=== PATIENT | male | born 1950 | race Caucasian/White ===

== ENCOUNTER 2022-10-02 10:12 | Observation (INO) | payer MEDICARE, BC, SELFPAY ==
[2022-10-02] VITALS (28 sets, daily range): BP systolic 128–171; BP diastolic 66–111; PULSE 52–71; RESP 18; TEMP 36.2–36.4; O2SAT 92–99; BMI 40.4
--- NOTE | 2022-10-02 10:36 | CRLHL7_ITS ---
For Patients: As a result of the Century Cures Act, medical imaging exams and procedure reports are released immediately into your electronic medical record. You may view this report before your referring provider. If you have questions, please contact your health care provider. INDICATION: Weakness. TECHNIQUE: Two-view chest. FINDINGS: Normal size cardiac silhouette. Clear lung meadows with no evidence of acute pneumonic infiltrates or CHF. No pneumothorax or pleural effusion. IMPRESSION: Negative chest. Dictated by Dell Griffin MD @ 10/02/2022 11:39:10 AM (Electronically Signed)
--- NOTE | 2022-10-02 10:51 | CRLHL7_ITS ---
For Patients: As a result of the 21st Century Cures Act, medical imaging exams and procedure reports are released immediately into your electronic medical record. You may view this report before your referring provider. If you have questions, please contact your health care provider. Indication: Stroke. Technique: MRI Head: Performed without and with intravenous contrast. MRA Head: Performed without IV contrast. MRA Neck: Performed without and with intravenous contrast. Contrast: 20 cc Dotarem. Comparison: None relevant available at the time of interpretation. Findings: MRI Head: Slight thinning of the corpus callosum. The pituitary gland and clivus appear intact. Mild degenerative change visualized upper cervical spine. There is a mild region of restricted diffusion involving the anterior left temporal lobe. There appears to be subtle regions of cortical and subcortical restricted diffusion along the left parietal lobe. There is subtle T2 FLAIR hyperintense signal on the anterior left temporal lobe. The ventricles are proportionate to the cerebral sulci. The 4th ventricle appears midline. The basal cisterns appear patent. 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 Mild parenchymal volume loss. Moderate T2 FLAIR hyperintense foci within the subcortical and periventricular white matter, favored to represent chronic ischemic microvascular disease. There is no intracranial mass, abnormal mass-effect or midline shift identified. No abnormal enhancement. The orbits are preserved. Mild paranasal sinus mucosal disease. MRA Head: Occlusion at the M1 segment of the left MCA. Loss of flow void involving the left MCA distribution on conventional MRI sequences with increased signal on the T2 FLAIR weighted images. However, there does appear to be at least some flow within the more distal MCA branches on postcontrast MRA of the neck. Mild atherosclerotic disease throughout the remaining intra cerebral vasculature. 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 No aneurysm identified. MRA Neck: Mild (less than 50 % stenosis) atherosclerotic disease at the proximal internal carotid arteries by NASCET criteria. The cervical segments of both vertebral arteries are patent. The visualized portions of the aortic arch, great vessel origins and proximal subclavian arteries are unremarkable. Impression: MRI Head: 1. Mild region of hyperacute infarct involving the anterior left temporal lobe. Potential additional small regions of hyperacute infarcts along the cortical/subcortical interface of the left parietal lobe. 2. Moderate chronic ischemic microvascular disease. MRA Head: 1. 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 Possible reconstitution with sluggish flow through the distal MCA branches seen on the postcontrast MRA of the neck. 2. No aneurysm. MRA Neck: 1. Mild (less than 50 % stenosis) atherosclerotic disease at the proximal internal carotid arteries by NASCET criteria. 2. The vertebral arteries appear patent. The above findings were communicated over the telephone with Dr. Bonnie Mosley by Dr. Manriquez at 1304 hours on 10/02/2022. Dictated by Tejinder Manriquez MD @ 10/02/2022 1:18:59 PM (Electronically Signed)
[2022-10-02 11:12] LABS: Basophils Absolute Auto 0.03 K/uL (0.00-0.30); Basophils Percent Auto 0.4 % (0.0-3.0); Eosinophils Absolute Auto 0.16 K/uL (0.00-0.50); Eosinophils Percent Auto 1.9 % (0.0-7.0); Hematocrit 45.9 % (37.0-53.0); Hemoglobin* 15.1 gm/dL (13.5-17.5); Immature Granulocytes Abs Auto 0.01 K/uL (0.00-0.30); Immature Granulocytes Pct Auto 0.1 %; Lymphocytes Percent Auto 17.4 % (20-44); Mean Corpuscular HGB Conc 33 gm/dL (32-36); Mean Corpuscular Hemoglobin 30 pg (26-34); Mean Corpuscular Volume 91 fL (80-100); Monocytes Percent Auto 7.2 % (0.0-11.0); Platelet Count* 263 K/uL (140-440); RDW Coefficient of Variation % 12.7 % (11.5-15.5); Red Blood Count 5.07 m/uL (4.30-5.90); White Blood Count* 8.39 K/uL (4.50-11.00)
[2022-10-02 11:15] LABS: Appearance Urine Clear (Clear); Bilirubin Urine Negative (Negative); Blood Urine Negative (Negative); Color Urine Yellow (Yellow); Glucose Urine Negative (Negative); Ketones Urine Negative (Negative); Leukocyte Esterase Urine Negative (Negative); Nitrite Urine Negative (Negative); Protein Urine Trace (Negative); Specific Gravity Urine 1.015 (1.000-1.030); Urobilinogen Urine 0.2 (0.2-1.0); pH Urine 8.5 (5.0-8.5)
[2022-10-02 11:21] LABS: Slide Review Reflex No
[2022-10-02 11:26] LABS: Albumin* 4.4 g/dL (3.3-5.0); Chloride* 103 mmol/L (96-114); Sodium* 141 mmol/L (135-149)
[2022-10-02 11:27] LABS: Potassium* 3.9 mmol/L (3.6-5.1)
[2022-10-02 11:27] LABS: RBC Urine 0-2 (0-2); WBC Urine 0-2 (0-5)
[2022-10-02 11:29] LABS: Carbon Dioxide* 30 mmol/L (20-32); Creatinine* 0.9 mg/dL (0.5-1.5); Est. Creatinine Clearance* 72.16; Estimated Glomerular Filt Rate 91 ml/min
[2022-10-02 11:30] LABS: Alanine Aminotransferase* 28 U/L (4-50); Alkaline Phosphatase* 89 U/L (40-150); Aspartate Amino Transferase* 27 U/L (12-35); Bilirubin Direct* 0.1 mg/dL (0.0-0.5); Bilirubin Total* 0.7 mg/dL (0.1-1.5); Blood Urea Nitrogen* 19 mg/dL (7-30); Calcium* 9.2 mg/dL (8.4-10.6); Glucose* 105 mg/dL (60-115); Total Protein* 7.7 g/dL (6.0-8.3)
[2022-10-02 11:32] LABS: C Reactive Protein* 0.8 mg/dL (0.5-1.0)
[2022-10-02 11:33] LABS: Troponin, Point-of-Care* 0.01 ng/ml (0.01-0.04)
[2022-10-02 11:34] LABS: Mono Screen* Negative (Negative)
--- NOTE | 2022-10-02 11:43 | ED.GENADULT ---
HPI - General Adult General Chief complaint: Weakness Stated complaint: sycope/weakness Time Seen by Provider: 10/02/22 10:28 Source: patient Mode of arrival: ambulatory Limitations: no limitations History of Present Illness HPI narrative: [age] year old male coming in today complaining of not feeling well. He states that around 3 hours prior to presenting, he had an episode where he felt very dizzy. He describes this as feeling like he was unsteady on his feet. Then his right leg felt very numb. He was unsure if he could continue walking so he sat down. The episode resolved in approximately 10 minute. He has not been feeling right since, complains of feeling very tired and is concerned that his blood pressure is elevated, therefore he presented to the ED for evaluation. Patient's past medical history is of again for obesity and hyperlipidemia. He takes daily statin and no other medications. He has no known drug allergies. He denies history of hypertension or obstructive sleep apnea. States his blood pressures at home are generally in the 120 systolic. When he woke up this morning was 170 and this did scare him. Denies any headache, no blurry vision or ringing in his ears. He is not having any chest pain or shortness of breath. No recent illness. Appetite has been normal. Past surgical history significant for partial colectomy secondary to large colonic polyps, shoulder surgery. Related Data Home Medications Medication Instructions Recorded Confirmed rosuvastatin 10 mg tablet (Crestor) 10 mg PO DAILY 10/02/22 10/02/22 Allergies Allergy/AdvReac Type Severity Reaction Status Date / Time No Known Drug Allergies Allergy Verified 10/02/22 10:19 Review of Systems Status of ROS: Reports: 10 or more systems reviewed and unremarkable except as noted in History and below [facility] Social History Smoking Status: Never smoker How often do you have a drink containing alcohol: monthly or less AUDIT-C Alcohol total score: 1 Non-prescribed substance use: denies use service: No Exam Narrative: Exam Narrative: Well-nourished well-developed patient in no acute distress. Alert and oriented. Answers questions appropriately. Mood and affect are appropriate. Thoughts are goal oriented and rational. No tangential or magical thinking noted. Patient speaks in full sentences without needing to catch his breath. Speech is not slurred or pressured. HEENT: Normocephalic atraumatic. Face is symmetrical. Pupils are equally round reactive to light. Extraocular muscles are intact. Conjunctivae are moist without any icterus noted. Moist mucous membranes. Posterior pharynx is normal. Neck is soft without any lymphadenopathy or thyromegaly. No masses are appreciated. Cardiovascular: Heart is regular rate and rhythm S1 and S2 are present without any murmurs. Lungs: Clear to auscultation bilaterally no wheezes rhonchi or rales are appreciated. Patient takes deep breaths without any discomfort. Abdomen: Soft and nontender, protuberant, nondistended with normal bowel sounds. No guarding or rebound. No masses or organomegaly appreciated. Extremities: Bilateral lower extremities show trace edema. Normal DP and PT pulses. Skin: Well perfused without any obvious rashes. Strength is 5/5 of the upper and lower extremities. Reflexes are 2+ and symmetric at the knees. Cranial nerves 3-12 are normal. [id number] is normal. There is no nystagmus either horizontally or vertically. Gait is normal. Const: Vital Signs, click to edit/add: Vital Signs - 24 hr 10/02/22 10:16 10/02/22 10:24 10/02/22 10:30 Pulse Rate 58 L 60 Pulse Rate [Right Pulse Oximeter] 64 Respiratory Rate 18 Blood Pressure Blood Pressure [Le ft Upper Arm] 165/91 H Pulse Oximetry 96 97 [facility] 10/02/22 10:33 10/02/22 11:03 10/02/22 11:04 Pulse Rate 57 L 55 L 61 Pulse Rate [Right Pulse Oximeter] Respiratory Rate Blood Pressure 171/111 H 132/84 Blood Pressure [Le ft Upper Arm] Pulse Oximetry 95 97 95 Oxygen Delivery Mi thod 10/02/22 11:15 10/02/22 12:30 10/02/22 12:31 Pulse Rate 52 L 67 60 Pulse Rate [Right Pulse Oximeter] Respiratory Rate Blood Pressure 145/77 H Blood Pressure [Le ft Upper Arm] Pulse Oximetry 93 92 97 [facility] 10/02/22 12:32 10/02/22 12:33 10/02/22 12:45 Pulse Rate 68 61 71 Pulse Rate [Right Pulse Oximeter] Respiratory Rate Blood Pressure 146/78 H Blood Pressure [Le ft Upper Arm] Pulse Oximetry 95 97 97 Oxygen Delivery Me thod 10/02/22 13:00 10/02/22 13:01 10/02/22 13:15 Pulse Rate 69 64 62 Pulse Rate [Right Pulse Oximeter] Respiratory Rate Blood Pressure 140/83 H Blood Pressure [Le ft Upper Arm] Pulse Oximetry 97 96 96 Oxygen Delivery Me thod 10/02/22 13:30 10/02/22 13:31 10/02/22 13:45 Pulse Rate 65 67 69 Pulse Rate [Right Pulse Oximeter] Respiratory Rate Blood Pressure 128/84 Blood Pressure [Le ft Upper Arm] Pulse Oximetry 97 96 97 Oxygen Delivery Me thod 10/02/22 14:00 10/02/22 14:02 10/02/22 14:15 Pulse Rate 63 67 55 L Pulse Rate [Right Pulse Oximeter] Respiratory Rate Blood Pressure 147/85 H Blood Pressure [Le ft Upper Arm] Pulse Oximetry 98 99 97 Oxygen Delivery Me thod 10/02/22 14:30 10/02/22 14:31 10/02/22 14:45 Pulse Rate 57 L 58 L 63 Pulse Rate [Right Pulse Oximeter] Respiratory Rate Blood Pressure 139/73 Blood Pressure [Le ft Upper Arm] Pulse Oximetry 98 98 98 Oxygen Delivery Me thod Course Course Hospital Course: Given patient's vague symptoms of 1 sided body numbness and feeling off balance, I was concerned about a possible TIA and I did consult with Dr. Concepcion, stroke neurologist at [facility] who recommended MRI brain and MRA of head and neck. EKG, read by me, shows sinus bradycardia with a pulse of 59, sinus arrhythmia. Patient's pulse remained in the mid 60s while he was here. Lab work unremarkable. MRI and MRA showing occlusion of the distal segment of the MCA and a Mild region hyperacute infarct. Spoke again with Dr. Concepcion who recommended admission, aspirin and Plavix- both given while in the ED. She will follow the patient via stroke telemedicine. Patient remained asymptomatic throughout his emergency room stay. Vital Signs Vital signs: Initial Vital Signs Pulse Rate 64 10/02/22 10:16 Pulse Rhythm Regular 10/02/22 10:16 Respiratory Rate 18 10/02/22 10:16 Blood Pressure 165/91 H 10/02/22 10:16 Blood Pressure Mean 115 H 10/02/22 10:16 Blood Pressure Position Sitting 10/02/22 10:16 Pulse Oximetry 96 10/02/22 10:16 Oxygen Delivery Method Room Air 10/02/22 10:16 Vital Signs Pulse Rate 64 10/02/22 10:16 Respiratory Rate 18 10/02/22 10:16 Blood Pressure 165/91 H 10/02/22 10:16 Pulse Oximetry 96 10/02/22 10:16 Oxygen Delivery Method Room Air 10/02/22 10:16 Pulse Rate 63 10/02/22 14:45 Respiratory Rate 18 10/02/22 10:16 Blood Pressure 139/73 10/02/22 14:31 Pulse Oximetry 98 10/02/22 14:45 Oxygen Delivery Method Room Air 10/02/22 10:16 Medical Decision Making MDM Narrative Medical decision making narrative: 72-year-old male status post TIA with abnormalities noted on imaging. Patient will be admitted for further management. Medical Records Medical records reviewed: Yes I reviewed the patient's medical records Lab Data Labs: Lab Results 10/02/22 10/02/22 Range/Units 10:37 10:38 WBC 8.39 (4.50-11.00) K/uL RBC 5.07 (4.30-5.90) m/uL Hgb 15.1 (13.5-17.5) gm/dL Hct 45.9 (37.0-53.0) % MCV 91 (80-100) fL MCH 30 (26-34) pg MCHC 33 (32-36) gm/dL RDW Coeff of Ant 12.7 (11.5-15.5) % Plt Count 263 (140-440) K/uL Neut % (Auto) 73.0 H (42.0-72.0) % Lymph % (Auto) 17.4 L (20-44) % Monona % (Auto) 7.2 (0.0-11.0) % Eos % (Auto) 1.9 (0.0-7.0) % Baso % (Auto) 0.4 (0.0-3.0) % Neut # (Auto) 6.10 (1.7-7.0) K/uL Lymph # (Auto) 1.50 (0.90-2.90) K/uL Monona # (Auto) 0.60 (0.00-0.90) K/UL Eos # (Auto) 0.16 (0.00-0.50) K/uL Baso # (Auto) 0.03 (0.00-0.30) K/uL Abs Immat Gran (auto) 0.01 (0.00-0.30) K/uL Imm/Tot Granulo (auto) 0.1 % Sodium 141 (135-149) mmol/L Potassium 3.9 (3.6-5.1) mmol/L Chloride 103 (96-114) mmol/L Carbon Dioxide 30 (20-32) mmol/L BUN 19 (7-30) mg/dL Creatinine 0.9 (0.5-1.5) mg/dL Estimated Creat Clear 72.16 Estimated GFR 91 ml/min Glucose 105 (60-115) mg/dL Calcium 9.2 (8.4-10.6) mg/dL Total Bilirubin 0.7 (0.1-1.5) mg/dL Direct Bilirubin 0.1 (0.0-0.5) mg/dL AST 27 (12-35) U/L ALT 28 (4-50) U/L Alkaline Phosphatase 89 (40-150) U/L Troponin I < 0.01 L (0.01-0.04) ng/mL C-Reactive Protein 0.8 (0.5-1.0) mg/dL Total Protein 7.7 (6.0-8.3) g/dL Albumin 4.4 (3.3-5.0) g/dL TSH 3.100 (0.270-4.20) uIU/mL Urine Color Yellow (Yellow) Urine Appearance Clear (Clear) Urine pH 8.5 (5.0-8.5) Ur Specific [place] 1.015 (1.000-1.030) Urine Protein Trace A (Negative) Urine Glucose (UA) Negative (Negative) Urine Ketones Negative (Negative) Urine Blood Negative (Negative) Urine Nitrite Negative (Negative) Urine Bilirubin Negative (Negative) Urine Urobilinogen 0.2 (0.2-1.0) Ur Leukocyte Esterase Negative (Negative) Urine RBC 0-2 (0-2) Urine WBC 0-2 (0-5) Ur Squamous Epith Cells None (None-Few) Urine Bacteria None (None) Monoscreen Negative (Negative) POC Troponin I 0.01 (0.01-0.04) ng/ml Imaging Data Chest x-ray: Attestation: I have reviewed the pertinent imaging results. Radiologist's impression: Two-view chest. FINDINGS: Normal size cardiac silhouette. Clear lung meadows with no evidence of acute pneumonic infiltrates or CHF. No pneumothorax or pleural effusion. IMPRESSION: Negative chest. MRI - head: Attestation: I have reviewed the pertinent imaging results. Radiologist's impression: Technique: MRI Head: Performed without and with intravenous contrast. MRA Head: Performed without IV contrast. MRA Neck: Performed without and with intravenous contrast. Contrast: 20 cc Dotarem. Comparison: None relevant available at the time of interpretation. Findings: MRI Head: Slight thinning of the corpus callosum. The pituitary gland and clivus appear intact. Mild degenerative change visualized upper cervical spine. There is a mild region of restricted diffusion involving the anterior left temporal lobe. There appears to be subtle regions of cortical and subcortical restricted diffusion along the left parietal lobe. There is subtle T2 FLAIR hyperintense signal on the anterior left temporal lobe. The ventricles are proportionate to the cerebral sulci. The 4th ventricle appears midline. The basal cisterns appear patent. 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 Mild parenchymal volume loss. Moderate T2 FLAIR hyperintense foci within the subcortical and periventricular white matter, favored to represent chronic ischemic microvascular disease. There is no intracranial mass, abnormal mass-effect or midline shift identified. No abnormal enhancement. The orbits are preserved. Mild paranasal sinus mucosal disease. MRA Head: Occlusion at the M1 segment of the left MCA. Loss of flow void involving the left MCA distribution on conventional MRI sequences with increased signal on the T2 FLAIR weighted images. However, there does appear to be at least some flow within the more distal MCA branches on postcontrast MRA of the neck. Mild atherosclerotic disease throughout the remaining intra cerebral vasculature. 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 No aneurysm identified. MRA Neck: Mild (less than 50 % stenosis) atherosclerotic disease at the proximal internal carotid arteries by NASCET criteria. The cervical segments of both vertebral arteries are patent. The visualized portions of the aortic arch, great vessel origins and proximal subclavian arteries are unremarkable. Impression: MRI Head: 1. Mild region of hyperacute infarct involving the anterior left temporal lobe. Potential additional small regions of hyperacute infarcts along the cortical/subcortical interface of the left parietal lobe. 2. Moderate chronic ischemic microvascular disease. MRA Head: 1. 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 Possible reconstitution with sluggish flow through the distal MCA branches seen on the postcontrast MRA of the neck. 2. No aneurysm. MRA Neck: 1. Mild (less than 50 % stenosis) atherosclerotic disease at the proximal internal carotid arteries by NASCET criteria. 2. The vertebral arteries appear patent. MRA head neck: Attestation: I have reviewed the pertinent imaging results. Radiologist's impression: Technique: MRI Head: Performed without and with intravenous contrast. MRA Head: Performed without IV contrast. MRA Neck: Performed without and with intravenous contrast. Contrast: 20 cc Dotarem. Comparison: None relevant available at the time of interpretation. Findings: MRI Head: Slight thinning of the corpus callosum. The pituitary gland and clivus appear intact. Mild degenerative change visualized upper cervical spine. There is a mild region of restricted diffusion involving the anterior left temporal lobe. There appears to be subtle regions of cortical and subcortical restricted diffusion along the left parietal lobe. There is subtle T2 FLAIR hyperintense signal on the anterior left temporal lobe. The ventricles are proportionate to the cerebral sulci. The 4th ventricle appears midline. The basal cisterns appear patent. 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 Mild parenchymal volume loss. Moderate T2 FLAIR hyperintense foci within the subcortical and periventricular white matter, favored to represent chronic ischemic microvascular disease. There is no intracranial mass, abnormal mass-effect or midline shift identified. No abnormal enhancement. The orbits are preserved. Mild paranasal sinus mucosal disease. MRA Head: Occlusion at the M1 segment of the left MCA. Loss of flow void involving the left MCA distribution on conventional MRI sequences with increased signal on the T2 FLAIR weighted images. However, there does appear to be at least some flow within the more distal MCA branches on postcontrast MRA of the neck. Mild atherosclerotic disease throughout the remaining intra cerebral vasculature. 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 No aneurysm identified. MRA Neck: Mild (less than 50 % stenosis) atherosclerotic disease at the proximal internal carotid arteries by NASCET criteria. The cervical segments of both vertebral arteries are patent. The visualized portions of the aortic arch, great vessel origins and proximal subclavian arteries are unremarkable. Impression: MRI Head: 1. Mild region of hyperacute infarct involving the anterior left temporal lobe. Potential additional small regions of hyperacute infarcts along the cortical/subcortical interface of the left parietal lobe. 2. Moderate chronic ischemic microvascular disease. MRA Head: 1. 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 Possible reconstitution with sluggish flow through the distal MCA branches seen on the postcontrast MRA of the neck. 2. No aneurysm. MRA Neck: 1. Mild (less than 50 % stenosis) atherosclerotic disease at the proximal internal carotid arteries by NASCET criteria. 2. The vertebral arteries appear patent. ECG Data Attestation: I personally reviewed and interpreted this ECG as follows: Discharge Plan Discharge Clinical Impression: Brain TIA Patient Disposition: Admitted As Inpatient Condition: Stable
[2022-10-02 11:44] LABS: Troponin I* < 0.01 ng/mL (0.01-0.04)
[2022-10-02] MEDS: ASPIRIN EC 325 MG TABLET PO (14:14)
[2022-10-02] MEDS: CLOPIDOGREL 300 MG TABLET PO (14:14)
--- NOTE | 2022-10-02 14:20 | ED.NURSE ---
neurology had called back and has already spoken to dr hughes. plan is to be done per the neurologist and dr hughes. the tele med exam, per the neurologist, is unknown as to when this will be done. the cart with the neuro tele med camera at the bedside.
--- NOTE | 2022-10-02 15:30 | ED.NURSE ---
rosenda miller was given report. to [id number] via cart.
--- NOTE | 2022-10-02 15:53 | P.IMHP_ITS ---
Hospitalist- H&P: HPI History of Present Illness Time Seen by Provider: 15:00 Date Seen: 10/02/22 Chief complaint: Transient R leg numbness and lightheadedness Narrative: Jurgen Tucker is a 72 year old man was in his usual state of health until this morning. He woke up around his usual time, 6 in the morning, at which time he went downstairs and watch some television shows. Both he and his were preparing to cone picker their grandson when he noticed these symptoms, around 8:00 a.m. or so. Symptoms lasted all of 5 minutes. He did not feel steady on his feet. [place] a sense of dizziness. Denied headache. These symptoms entirely resolved in that time frame, and have not recurred since. Subsequently felt extremely sleepy, and thus the patient remained home resting while his picked up their grandson. Interestingly, he checked his blood pressure after the symptoms resolved and his systolic blood pressure reading was 170 mmHg, which is unusually elevated for him. Usually his systolic blood pressures at rest are around 120 mmHg. Denied any other symptoms. Denied any other focal motor neurologic deficits including in regard to cranial nerves. His called the [facility] help line, explained the situation, and received advice to present to the emergency department for further assessment. Thus they came to the emergency department for further evaluation. Has never experienced any thing like this in the past. No recent trauma or injury. No recent major travel. No recent illness. Denies chest heaviness, pressure, tightness, or pain. Denies syncope. Denies cough or dyspnea at rest, paroxysmal nocturnal dyspnea, orthopnea. Denies nausea vomiting. Denies palpitations or chest fluttering. Has history of chronic bilateral lower extremity edema, right greater than left, which in the recent past has been well controlled. Historically he has had to use compression stockings to address this. Review of Systems Status of ROS: Reports: 10 or more systems reviewed and unremarkable except as noted in History and below [facility] Medical History (Updated 10/02/22 @ 16:17 by Chente Neil MD) Elevated BP without diagnosis of hypertension ?R03.0 - Elevated blood-pressure reading, without diagnosis of hypertension (ICD-10) Family history of prostate cancer in father ?Z80.42 - Family history of malignant neoplasm of prostate (ICD-10) Family history of colon cancer in mother ?Z80.0 - Family history of malignant neoplasm of digestive organs (ICD-10) Adenomatous polyp of colon ?D12.6 - Benign neoplasm of colon, unspecified (ICD-10) Obesity ?E66.9 - Obesity, unspecified (ICD-10) Hyperlipidemia ?E78.5 - Hyperlipidemia, unspecified (ICD-10) Surgical History (Updated 10/02/22 @ 15:36 by Chente Neil MD) Status post right rotator cuff repair ?Z98.890 - Other specified postprocedural states (ICD-10) S/P colectomy ?Z90.49 - Acquired absence of other specified parts of digestive tract (ICD- 10) Hx of colonoscopy with polypectomy ?Z98.890 - Other specified postprocedural states (ICD-10) ?Z86.010 - Personal history of colonic polyps (ICD-10) Family History (Updated 10/02/22 @ 15:47 by Chente Neil MD) Mother Colon cancer, Onset Age: 62 Father Prostate cancer Social History (Updated 10/02/22 @ 15:53 by Chente Neil MD) Narrative: As of 10/02/2022, 45 years. 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 Lives with , Maryann Tucker. Designates as POA for health should that be needed - Maryann's telephone number is [phone]. Requests full resuscitation in event of cardiopulmonary demise. Primary care physician is Dr. Jed García, [facility], [place], [place]. Smoking Status: Never smoker How often do you have a drink containing alcohol: monthly or less AUDIT-C Alcohol total score: 1 Non-prescribed substance use: denies use service: No Meds Home Medications and Allergies Home Medications Medication Instructions Recorded Confirmed Type rosuvastatin 10 mg tablet (Crestor) 10 mg PO DAILY 10/02/22 10/02/22 History Allergies Allergy/AdvReac Type Severity Reaction Status Date / Time No Known Drug Allergies Allergy Verified 10/02/22 10:19 Exam Narrative: Exam Narrative: I examined the patient in the emergency department, as he is in a semi recumbent position on the exam table. He appears comfortable and in no acute distress. Vision and hearing are grossly normal. Alert, oriented to self, place, time, situation. Articulate, friendly, cooperative. Mood and affect are congruent. Normal tympanic membranes bilaterally. Midline nasal septum. Mallampati class ii airway. Dentition fair repair. Moist buccal mucosa. No icterus or conjunctival injection. Pupils equally round and reactive to light and accommodation. Extraocular muscles intact. No nystagmus. Neck is supple. Midline trachea. No JVD or hepatojugular reflux. No carotid bruits. No head and neck lymphadenopathy. Lungs are clear to auscultation without wheezing, rhonchi, or rales. Chest wall excursions are full. No CVA tenderness. No tenderness to percussion over the spine. Heart tones with regular rhythm, normal S1-S2, without murmur, gallop, or rub. PMI is not laterally displaced. Abdomen is obese, with active bowel sounds, soft, nontender. No organomegaly or masses. No rebound or guarding. No obvious focal motor neurologic deficits. Moves all 4 extremities. No tremor or asterixis. Cranial nerves 3-12 are grossly normal. Normal strength testing upper and lower extremities. Normal rapid alternating movements of upper and lower extremities. Normal finger to nose bilaterally. Palpable pulses upper and lower extremities. Capillary refill less than 3 seconds. Mild bilateral lower extremity edema, right greater than left. Secondary findings of chronic venous insufficiency of right lower extremity. Const: Vital Signs, click to edit/add: Vital Signs - 24 hr 10/02/22 10:16 10/02/22 10:24 10/02/22 10:30 Pulse Rate 58 L 60 Pulse Rate [Right Pulse Oximeter] 64 Respiratory Rate 18 Blood Pressure Blood Pressure [Le ft Upper Arm] 165/91 H Pulse Oximetry 96 97 94 [facility] 10/02/22 10:33 10/02/22 11:03 10/02/22 11:04 Pulse Rate 57 L 55 L 61 Pulse Rate [Right Pulse Oximeter] Respiratory Rate Blood Pressure 171/111 H 132/84 Blood Pressure [Le ft Upper Arm] Pulse Oximetry 95 97 95 Oxygen Delivery [facility] 10/02/22 11:15 10/02/22 12:30 10/02/22 12:31 Pulse Rate 52 L 67 60 Pulse Rate [Right Pulse Oximeter] Respiratory Rate Blood Pressure 145/77 H Blood Pressure [Le ft Upper Arm] Pulse Oximetry 93 92 97 [facility] 10/02/22 12:32 10/02/22 12:33 10/02/22 12:45 Pulse Rate 68 61 71 Pulse Rate [Right Pulse Oximeter] Respiratory Rate Blood Pressure 146/78 H Blood Pressure [Le ft Upper Arm] Pulse Oximetry 95 97 97 Oxygen Delivery [facility] 10/02/22 13:00 10/02/22 13:01 10/02/22 13:15 Pulse Rate 69 64 62 Pulse Rate [Right Pulse Oximeter] Respiratory Rate Blood Pressure 140/83 H Blood Pressure [Le ft Upper Arm] Pulse Oximetry 97 96 96 Oxygen Delivery [facility] 10/02/22 13:30 10/02/22 13:31 10/02/22 13:45 Pulse Rate 65 67 69 Pulse Rate [Right Pulse Oximeter] Respiratory Rate Blood Pressure 128/84 Blood Pressure [Le ft Upper Arm] Pulse Oximetry 97 96 97 Oxygen Delivery [facility] 10/02/22 14:00 10/02/22 14:02 10/02/22 14:15 Pulse Rate 63 67 55 L Pulse Rate [Right Pulse Oximeter] Respiratory Rate Blood Pressure 147/85 H Blood Pressure [Le ft Upper Arm] Pulse Oximetry 98 99 97 Oxygen Delivery [facility] 10/02/22 14:30 10/02/22 14:31 10/02/22 14:45 Pulse Rate 57 L 58 L 63 Pulse Rate [Right Pulse Oximeter] Respiratory Rate Blood Pressure 139/73 Blood Pressure [Le ft Upper Arm] Pulse Oximetry 98 98 98 Oxygen Delivery [facility] 10/02/22 15:02 10/02/22 15:32 Pulse Rate Pulse Rate [Right Pulse Oximeter] Respiratory Rate Blood Pressure 145/76 H 130/66 Blood Pressure [Le ft Upper Arm] Pulse Oximetry Oxygen Delivery [facility] Hospitalist - H&P: Result Labs Labs: Short CBC 10/02/22 Range/Units 10:37 WBC 8.39 (4.50-11.00) K/uL Hgb 15.1 (13.5-17.5) gm/dL Hct 45.9 (37.0-53.0) % Plt Count 263 (140-440) K/uL BMP 10/02/22 10:37 Sodium 141 Potassium 3.9 Chloride 103 Carbon Dioxide 30 BUN 19 Creatinine 0.9 Glucose 105 Calcium 9.2 Cardiac Enzymes 10/02/22 Range/Units 10:37 Troponin I < 0.01 L (0.01-0.04) ng/mL Liver Function 10/02/22 Range/Units 10:37 Total Bilirubin 0.7 (0.1-1.5) mg/dL Direct Bilirubin 0.1 (0.0-0.5) mg/dL AST 27 (12-35) U/L ALT 28 (4-50) U/L Alkaline Phosphatase 89 (40-150) U/L Albumin 4.4 (3.3-5.0) g/dL Urine 10/02/22 Range/Units 10:38 Urine Color Yellow (Yellow) Urine Appearance Clear (Clear) Urine pH 8.5 (5.0-8.5) Ur Specific Jackson 1.015 (1.000-1.030) Urine Protein Trace A (Negative) Urine Glucose (UA) Negative (Negative) ECG ECG interpretation date: 10/02/22 ECG interpretation time: 15:00 Prior ECG tracings: not available for review Interpretation: Normal sinus rhythm. No sign of ischemia. Imaging MR - Other: Attestation: I have reviewed the pertinent imaging results. Radiologist's impression: 10/02/2022, MRI head, MRA head and neck: Impression: MRI Head: 1. Mild region of hyperacute infarct involving the anterior left temporal lobe. Potential additional small regions of hyperacute infarcts along the cortical/subcortical interface of the left parietal lobe. 2. Moderate chronic ischemic microvascular disease. MRA Head: 1. 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 Possible reconstitution with sluggish flow through the distal MCA branches seen on the postcontrast MRA of the neck. 2. No aneurysm. MRA Neck: 1. Mild (less than 50 % stenosis) atherosclerotic disease at the proximal internal carotid arteries by NASCET criteria. 2. The vertebral arteries appear patent. Chest x-ray: Attestation: I have reviewed the pertinent imaging results. Radiologist's impression: 10/02/2022: No acute cardiopulmonary abnormalities noted. Assessment and Plan Assessment and plan (1) Acute ischemic left middle cerebral artery (MCA) stroke: Problem comment: 10/02/2022: transient 5 minutes of R leg numbness; MRI Head: 1. Mild region of hyperacute infarct involving the anterior left temporal lobe. Potential additional small regions of hyperacute infarcts along the cortical/subcortical interface of the left parietal lobe. 2. Moderate chronic ischemic microvascular disease. MRA Head: 1. 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 Possible reconstitution with sluggish flow through the distal MCA branches seen on the postcontrast MRA of the neck. 2. No aneurysm. MRA Neck: 1. Mild (less than 50 % stenosis) atherosclerotic disease at the proximal internal carotid arteries by NASCET criteria. 2. The vertebral arteries appear patent. Status: Acute Assessment and Plan: 1. Patient was seen by video stroke Neurology, Dr. Concepcion, [facility] [place]. 2. In the emergency department patient received clopidogrel 300 mg orally x1 dose. Starting tomorrow morning we will continue the patient on clopidogrel 75 mg orally once daily. 3. In the emergency department patient received aspirin 325 mg orally x1 dose. Starting tomorrow morning we will continue the patient on aspirin 81 mg orally once daily. 4. Will double the dose of his rosuvastatin from 10 mg once daily to 20 mg once daily. Patient started this medication about 6 months ago. 5. Will monitor blood pressures for now. At this juncture I will not start him on an antihypertensive medication. Will need to consider this matter additionally in the outpatient setting. 6. Check echocardiogram, in particular I think it is prudent to rule out PFO in this individual. 7. Physical therapy and occupational therapy to assess patient while in hospital. 8. Telemetry while in hospital. Recheck ECG in the morning. 9. Will have lab run a hemoglobin A1c. 10. Will recheck fasting lipid panel tomorrow morning. 11. Stroke Neurology will continue to follow the patient while he is in the hospital. 12. Neuro checks q.4 hours while in hospital. (2) Atherosclerotic cerebrovascular disease: Problem comment: 10/02/2022: MRA Head: Occlusion at the M1 segment of the left MCA. Loss of flow void involving the left MCA distribution on conventional MRI sequences with increased signal on the T2 FLAIR weighted images. However, there does appear to be at least some flow within the more distal MCA branches on postcontrast MRA of the neck. Mild atherosclerotic disease throughout the remaining intra cerebral vasculature. Left [employer]AT [employer]ER. No aneurysm identified. MRA Neck: Mild (less than 50 % stenosis) atherosclerotic disease at the proximal internal carotid arteries by NASCET criteria. The cervical segments of both vertebral arteries are patent. The visualized portions of the aortic arch, great vessel origins and proximal subclavian arteries are unremarkable. Status: Acute Assessment and Plan: 1. Increased rosuvastatin dose as specified above. 2. Initiate low-cholesterol low-fat diet. Will ask our dietitian to consult with the patient in this regard. (3) Elevated BP without diagnosis of hypertension: Problem comment: 02/23: noted to have resting SBPs of 140-150 mmHg at home periodically - followed by primary care physician. Status: Acute Assessment and Plan: 1. For now will not initiate antihypertensive therapy. Will have primary care physician reassess in the outpatient setting. (4) Hyperlipidemia: Status: Acute Assessment and Plan: 1. Increased rosuvastatin dose. 2. Recheck fasting lipid panel tomorrow morning. Plan 1. Reviewed impression with patient and . Answered their questions. 2. Patient and are agreeable to above stated plans and recommendations.
[2022-10-02 18:25] LABS: Hemoglobin A1C* 5.17 % (0-5.6)
--- NOTE | 2022-10-02 18:28 | PC.NURSE ---
Patient arrived to the floor at 15:45 with his and grandson. He reports feeling fine since his episode at 0730 this morning. VSS on RA. Pt ate 100% of dinner. Neuros were completed per MD order @ 1800. AMEE's in place order for SCD's at bedtime. He is independent in his room. Echo was completed at 1800. A1C is still pending. Observation overnight per tele neuro consult. Treating with plavix and asprin. Telemetry in place. Repeat ECG tomorrow AM.
[2022-10-03 00:05] VITALS: BP 133/77; PULSE 61; RESP 16; TEMP 36.6; O2SAT 95
[2022-10-03 04:00] VITALS: BP 158/84; PULSE 80; RESP 16; TEMP 36.6; O2SAT 97
--- NOTE | 2022-10-03 05:27 | PM.CCEN ---
Critical Care Event Note Summary Time Seen by Provider: 05:00 Date Seen: 10/03/22 Code activated: No Narrative: Received a rapid response request from nursing staff onsite reporting new neurologic symptoms consistent with left-sided weakness and facial droop with expressive aphasia. Chart reviewed and patient was noted to be admitted earlier today with CVA with MRI of the head consistent with occlusion of the M1 segment of the left MCA. At the time of my evaluation on camera, patient was already being evaluated by tele stroke neurology. According to patient RN, strength and neuro assessment at the beginning of the shift with intact muscle strength in upper and lower extremity. Case discussed with Dr. Huang Tele-stroke neurologist who assessed the patient and recommended a transfer patient to a tertiary center [facility] for thrombectomy. Recommended IV fluid administration and asked junior staff accountant to arrange for ambulance transfer and communicated with neurology and neurointensive care unit at the destination site. Critical care time: less than 30 mins
--- NOTE | 2022-10-03 06:02 | PC.NURSE ---
END OF SHIFT NOTE: PT PLEASANT AND COOPERATIVE WITH CARES. PT DENIES CP, SOB, N/V. AMBULATES INDEPENDENTLY WITHIN ROOM. VSS ON RA; AFEBRILE. NEURO CHECKS NEGATIVE. JONATHAN AT PT BEDSIDE. CALL LIGHT WITHIN PT?S REACH.? [id number] PT STATUS CHANGE. PT WAS UP TO USE RESTROOM; UPON RETURN TO BED PT REPORTS SUDDEN RIGHT SIDE WEAKNESS. RIGHT ARM AND LEG FLACCID, RIGHT SIDED FACIAL DROOP, SLURRED SPEECH. STROKE CODE CALLED @0420. TELESTROKE CONTACTED SPOKE WITH DR. MONTOYA. LESLEY UPDATED DR. KO SUTTON. PT TRANSFERRED VIA EMS TO [facility]; ACCEPTING DR. DEE. NURSE TO NURSE REPORT COMPLETED.
== END 2022-10-03 07:00 | disposition short-term general hospital (02) ==
LOC: ED 14:15 → MEDSURG 15:46
PROVIDERS: Admitting Provider Internal Medicine; Emergency Provider Family Medicine; Visit Provider Internal Medicine
DX: I63.512 Cerebral infarction due to unspecified occlusion or stenosis of left middle cerebral artery (principal); I67.2 Cerebral atherosclerosis; R03.0 Elevated blood-pressure reading, without diagnosis of hypertension; E78.5 Hyperlipidemia, unspecified
CPT/HCPCS: 36415; 70544; 70549; 70553; 71046; 80048; 80061; 80076; 81001; 83036; 84443; 84484; 85025; 86140; 86308; 87086; 87186; 93005; 93306; 94761; 99285; G0378; G0427; A9270; A9575

== ENCOUNTER 2022-10-03 05:17 | Outpatient (CLI) | payer MEDICARE, BC, SELFPAY | END 2022-10-03 05:18 | disposition home or self-care (01) | LOC: AMB 10-06 19:43 | PROVIDERS: Visit Provider Family Medicine | DX: I63.512 Cerebral infarction due to unspecified occlusion or stenosis of left middle cerebral artery (principal) | CPT/HCPCS: A0425; A0427; A0429 ==

== ENCOUNTER 2022-10-16 07:22 | Emergency (ER) | payer MEDICARE, BC, SELFPAY ==
[2022-10-16 07:25] VITALS: BP 119/68; PULSE 51; RESP 16; O2SAT 96
[2022-10-16 07:31] VITALS: BP 135/60; PULSE 51; RESP 16; TEMP 35.6; O2SAT 96; BMI 33.7
[2022-10-16 08:00] VITALS: BP 115/55; PULSE 43; RESP 16; O2SAT 96
--- NOTE | 2022-10-16 08:29 | ED_ITS ---
HPI - General Adult General Chief complaint: Allergic Reaction Stated complaint: new medication side effects Time Seen by Provider: 10/16/22 07:58 History of Present Illness HPI narrative: This 72-year-old male comes in reporting an episode of lightheadedness, feeling warm, and some nausea that occurred couple hours prior to arrival at about 530 or 6 this morning. He had a a blood clot removed from his brain at [facility] a couple weeks ago. He has been doing well since then. He is taking Plavix and aspirin and his primary physician started him on lisinopril a couple days ago. He wonders if this may be causing some of these symptoms. He states that he took his last dose of lisinopril yesterday morning now more than 24 hours ago. His measured his blood pressure last night and found a systolic value of 107. His blood pressure at the time of my visit is 115 for systolic value and he did not take his lisinopril or any other blood pressure medicine this morning. Currently he feels back to normal. He did not have any other symptoms. There is no report of chest pain, shortness of breath, cough, dysuria, diarrhea, or vomiting. Related Data Home Medications Medication Instructions Recorded Confirmed rosuvastatin 10 mg tablet (Crestor) 10 mg PO DAILY 10/02/22 10/16/22 aspirin 81 mg chewable tablet 1 tab PO DAILY 10/16/22 10/16/22 clopidogrel 75 mg tablet 75 mg PO DAILY 10/16/22 10/16/22 lisinopril 5 mg tablet 5 mg PO DAILY 10/16/22 10/16/22 Allergies Allergy/AdvReac Type Severity Reaction Status Date / Time No Known Drug Allergies Allergy Verified 10/16/22 07:36 Review of Systems Status of ROS: Reports: 10 or more systems reviewed and unremarkable except as noted in History and below Narrative: Constitutional: No fevers, no weight gain or loss. Eyes: No discharge. No vision changes. HENT: No congestion, no sore throat, no ear pain. Cardiovascular: No chest pain, no palpitations. Respiratory: No shortness of breath, no wheezes, no cough. Gastrointestinal: No abdominal pain, no vomiting, no diarrhea. Genitourinary: No dysuria, no hematuria. Musculoskeletal: Normal range of motion. Skin: No rashes, no pruritis. Neurological: No weakness, sensory change, speech change. Endo/Heme/Allergies: No bruising or bleeding. No polydipsia. Pysch: no suicidality, no anxiety, no insomnia. All other systems reviewed and are negative. [facility] Medical History (Updated 10/16/22 @ 08:34 by Anish Coreas MD) Elevated BP without diagnosis of hypertension ?R03.0 - Elevated blood-pressure reading, without diagnosis of hypertension (ICD-10) Family history of prostate cancer in father ?Z80.42 - Family history of malignant neoplasm of prostate (ICD-10) Family history of colon cancer in mother ?Z80.0 - Family history of malignant neoplasm of digestive organs (ICD-10) Adenomatous polyp of colon ?D12.6 - Benign neoplasm of colon, unspecified (ICD-10) Obesity ?E66.9 - Obesity, unspecified (ICD-10) Hyperlipidemia ?E78.5 - Hyperlipidemia, unspecified (ICD-10) Surgical History Status post right rotator cuff repair ?Z98.890 - Other specified postprocedural states (ICD-10) S/P colectomy ?Z90.49 - Acquired absence of other specified parts of digestive tract (ICD- 10) Hx of colonoscopy with polypectomy ?Z98.890 - Other specified postprocedural states (ICD-10) ?Z86.010 - Personal history of colonic polyps (ICD-10) Family History Mother Colon cancer, Onset Age: 62 Father Prostate cancer Social History (Updated 10/02/22 @ 15:53 by Chente Neil MD) Narrative: As of 10/02/2022, 45 years. 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 Lives with , Maryann Tucker. Designates as POA for health should that be needed - Maryann's telephone number is [phone]. Requests full resuscitation in event of cardiopulmonary demise. Primary care physician is Dr. Jed García, [facility], [place], [place]. What is your current living situation?: I presently have a place to live Problems where you live: no known problems Problems where you live details: None In the past 12 months, utilities in danger of being shut off: no In the past 12 mos, have been you worried that your food would run out before you had money to buy more?: never true In the past 12 mos, the food you bought just didn't last and you didn't have money to buy more?: never true Highest level of school completed/degree received: Associate degree: occupational, technical, vocational program Smoking Status: Never smoker How often do you have a drink containing alcohol: monthly or less Alcohol type: beer How often do you have six or more drinks on one occasion: Never AUDIT-C Alcohol total score: 1 Non-prescribed substance use: denies use Caffeine: No How often does anyone, including family, friends and others, physically hurt you : never How often does anyone, including family, friends and others, insult or talk down to you: never How often does anyone, including family, friends and others, threaten you with harm: never How often does anyone, including family, friends and others, scream or curse at you: never service: No Exam Narrative: Exam Narrative: Constitutional: Well-developed, well-nourished, no acute distress. HEENT: Normocephalic, atraumatic. Neck: Normal range of motion. Nontender. Supple. Heart: Regular. No murmurs. Normal rate. Intact distal pulses. Lungs: Clear to auscultation. No chest discomfort. No wheezes, rhonchi, or rales. Abdomen: Normal bowel sounds. Nontender. No rebound tenderness. Genitalia: Deferred. Back: No midline tenderness. Normal range of motion. Extremities: Normal range of motion. No injury. Skin: Intact. No rash. Warm. No erythema or pallor. Neurologic: No altered sensation. No weakness. Alert and oriented. Psychiatric: No suicidality. No anxiety or depression. No insomnia. Nursing notes and vitals signs are reviewed. Const: Vital Signs, click to edit/add: Vital Signs - 24 hr 10/16/22 07:31 Temperature 96.1 F L Pulse Rate [Right Pulse Oximeter] 51 L Respiratory Rate 16 Blood Pressure [Ri ght Upper Arm] 135/60 Pulse Oximetry 96 Oxygen Delivery Me thod Room Air Course Vital Signs Vital signs: Initial Vital Signs Temperature 96.1 F L 10/16/22 07:31 Temperature Source Temporal Artery Scan 10/16/22 07:31 Pulse Rate 51 L 10/16/22 07:31 Respiratory Rate 16 10/16/22 07:31 Blood Pressure 135/60 10/16/22 07:31 Blood Pressure Mean 85 10/16/22 07:31 Blood Pressure Position Sitting 10/16/22 07:31 Pulse Oximetry 96 10/16/22 07:31 Oxygen Delivery Method Room Air 10/16/22 07:31 Vital Signs Temperature 96.1 F L 10/16/22 07:31 Pulse Rate 51 L 10/16/22 07:31 Respiratory Rate 16 10/16/22 07:31 Blood Pressure 135/60 10/16/22 07:31 Pulse Oximetry 96 10/16/22 07:31 Oxygen Delivery Method Room Air 10/16/22 07:31 Temperature 96.1 F L 10/16/22 07:31 Pulse Rate 51 L 10/16/22 07:31 Respiratory Rate 16 10/16/22 07:31 Blood Pressure 135/60 10/16/22 07:31 Pulse Oximetry 96 10/16/22 07:31 Oxygen Delivery Method Room Air 10/16/22 07:31 Medical Decision Making MDM Narrative Medical decision making narrative: This patient states that he feels normal currently but describes symptoms of lightheadedness with some warm feeling and nausea symptoms this morning. He was started on lisinopril a couple days ago and his blood pressure this morning has a systolic value of 115 without taking any blood pressure medicine for the past 24 hours. Last night his blood pressure was 107. It seems that his blood pressure was too low causing the symptoms he described this morning. The patient has not had anything to eat or drink yet this morning also. I had a rather lengthy discussion regarding the role of blood pressure management and criteria for treating blood pressure. I advised him to hold his lisinopril and record blood pressures for follow-up appointment with his primary physician. I did discuss lab and imaging options today and in a process of shared decision making and because he had a rather thorough workup recently the patient declined any further studies at this time. Discharge Plan Discharge Clinical Impression: Hypotension due to medication Patient Disposition: Home, Self-Care Condition: Stable Additional Instructions: Hold lisinopril. Record blood pressures for follow-up appointment with primary physician in the next week or 2. Return if worsening. Prescriptions: No Action clopidogrel 75 mg tablet 75 mg PO DAILY aspirin 81 mg tablet,chewable 1 tab PO DAILY lisinopril 5 mg tablet 5 mg PO DAILY rosuvastatin [Crestor] 10 mg tablet 10 mg PO DAILY Follow Up/Referrals: Provider,Not a Local [Primary Care Provider] - Stand Alone Forms: [facility] [employer] Info Instructions
[2022-10-16 08:30] VITALS: BP 134/74; PULSE 58; RESP 16; O2SAT 98
== END 2022-10-16 08:53 | disposition home or self-care (01) ==
PROVIDERS: Emergency Provider Emergency Medicine Emergency Medical Services
DX: I95.2 Hypotension due to drugs (principal); T46.4X5A Adverse effect of angiotensin-converting-enzyme inhibitors, initial encounter
CPT/HCPCS: 99283; 99284

== ENCOUNTER 2023-09-03 06:22 | Outpatient (CLI) | payer MEDICARE, BC, SELFPAY ==
--- OUTSIDE RECORDS SUMMARY | 2023-09-03 06:25 | XMS_ITS | Clinical Summary ---
Author Organization [facility] Address [place], [place] [address] Care Team Providers Care Youth Nutritional Monitor Name Role Phone Jed García DO Primary Care Provider Allergies No known active allergies Medications Medication Sig Dispensed Refills Start Date End Date Status multivitamin (MVI) tablet Take 1 Tablet by mouth once daily. 0 06/11/2019 Active Bgtww-1-JRT-EPA-Fish Oil 1,000 mg (120 mg-180 mg) cap Take 1 Capsule by mouth once daily. 0 06/11/2019 Active Saw Arroyo 160 mg capsule Take 1 Capsule by mouth once daily. 0 06/11/2019 Active cholecalciferol (Vitamin D) 1,000 unit capsule Take 1 Capsule (1,000 units) by mouth once daily. 0 02/28/2022 Active jghokilz-yojzsanao-N -manganese 500-400-2-0.33 mg cap Take 1 Capsule by mouth once daily. Active Coenzyme Q10 10 mg cap Take 10 mg by mouth once daily. Active apixaban (Eliquis) 5 mg tabletIndications:Pa roxysmal atrial fibrillation (HC) Take 1 Tablet (5 mg) by mouth two times daily. 180 Tablet 3 04/05/2023 Active rosuvastatin (CRESTOR) 10 mg tabletIndications:Hy perlipidemia, unspecified hyperlipidemia type Take 1 Tablet (10 mg) by mouth at bedtime. 90 Tablet 3 04/05/2023 Active polyethylene glycol-electrolyte (GOLYTELY) 236-22.74-6.74 -5.86 gram suspensionIndication s:Adenomatous polyp of colon, unspecified part of colon Drink 2 liters the day before colonoscopy and 2 liters 6 hours before colonoscopy appointment 4000 mL 08/27/2023 Active lisinopriL (PRINIVIL; ZESTRIL) 2.5 mg tabletIndications:HT N (hypertension) Take 1 Tablet (2.5 mg) by mouth once daily. 90 Tablet 3 08/20/2023 Active Active Problems Problem Noted Date Diagnosed Date Right hemiplegia 04/05/2023 Paroxysmal atrial fibrillation 02/01/2023 Last Assessment & Plan: [id number] of 4. Family history of colon cancer 10/12/2022 Ischemic stroke 10/04/2022 Acute CVA (cerebrovascular accident) 10/03/2022 HTN (hypertension) 10/03/2022 Morbid obesity with BMI of 40.0-44.9, adult 11/03 Adenomatous colon polyp 07/07/2015 Overview: Colonoscopy 07/2015 multiple polyps repeat in 3 years Colonoscopy 09/2018 2 polyps, repeat in 5 years Encounters Date Type Department Care Team Description 08/27/2023 Telephone [facility] [address] [place] [address] Jed García, DO Questions (NEEDS INSTRUCTION ON PRE-OP WORK. SHE CAN NOT SEE IN MY CHART.) 08/20/2023 10:35 AM CDT Preop Visit [facility] [address] [place] [address] Jed García, DO Pre-Op Exam ([facility] Dr Bernal 09/03/23 colonoscopy) 08/20/2023 Travel from Last 3 Months Immunizations Name Administration Dates Next Due Influenza, Inactivated AIIV4 (Age 65+ Years) Preserv Free 12/22/2022,02/15/2022,02/03/2021,11/20 Pneumococcal Poly,23-Valent (Pneumovax) 08/21/2018 Pneumococcal conj 13-Valent (Prevnar 13) 08/01/2017 RSV, Bivalent Vaccine Recons tituted (Abrysvo 120MCG/0.5mL) 12/30/2022 Tdap 06/23/2011 Zoster (Shingrix-RZV, recombinant) 02/27/2019, Family History Medical History Relation Name Comments Cancer-prostate Father Cancer-colon Mother Diabetes No Family History Heart Disease No Family History Relation Name Status Comments Father Mother Social History Tobacco Use Types Packs/Day Years Used Date Smoking Tobacco: Never Smokeless Tobacco: Never Tobacco Cessation:Counseling Given: Yes Alcohol Use Standard Drinks/Week Comments Yes 0 (1 standard drink = 0.6 oz pure alcohol) monthly - 1 beer - more in summer PHQ-2 Answer Date Recorded PHQ-2 TOTAL SCORE 0 04/05/2023 Social Connections Answer Date Recorded Frequency of Communication with Friends and Fami ly 0 10/12/2022 Financial Resource Strain Answer Date R ecorded Difficulty of Paying Living Expenses 3 10/12/2022 Difficulty of Paying Living Expenses Not on file 10/12/2022 Food Insecurity Answer Date Recorded Worried About Running Out of Food in the Last Ye ar 1 10/12/2022 Transportation Needs Answer Date Record ed Lack of Transportation (Medical) 1 10/12/2022 Housing Stability Answer Date Recorded Unable to Pay for Housing in the Last Year 1 10/12/2022 Sex and Gender Information Value Date Recorded Sex Assigned at Not on file Gender Identity Not on file Sexual Orientation Not on file Obstetrics History Last Filed Vital Signs Vital Sign Reading Time Taken Comments Blood Pressure 136/77 08/20/2023 10:39 AM CDT Pulse 58 08/20/2023 10:39 AM CDT Temperature 36.4 ??C (97.6 ??F) 11/28/2022 1:45 PM CD T Respiratory Rate 18 11/28/2022 1:45 PM CDT Oxygen Saturation 98% 08/20/2023 10: 39 AM CDT Inhaled Oxygen Concentration - - Weight 129.9 kg (286 lb 6.4 oz) 024 10:39 AM CDT Height 177.8 cm (5' 10) 08/20/2023 10: 39 AM CDT Body Mass Index 41.09 08/20/2023 10:39 AM CDT Plan of Treatment Upcoming Encounters Date Type Department Care Team (Late st Contact Info) Description 09/03/2023 6:30 AM CDT Procedure Only [facility] at [facility] [address] [place] [address] Conner Bernal MD [address] [place] [address] [place] [address] 09/05/2023 2:00 PM CDT Office Visit [facility] [place] [address] [facility] [address] [place] [address] Iggy Daigle MD [address] [place], [place] [id number] Health Maintenance Due Date Last Done Comments Tetanus booster 06/22/2021 06/23/2011 COVID-19 vaccine series ( season) 2023 12/18/2022, 12/29/2021, 06/15/2021, Additional history exists Colonoscopy through age 75 10/02/202310/01, 10/01/2018, 10/01/2018, Additional history exists Influenza for age 65+ 11/04/2023 12/22/2022 , 02/15/2022, 02/03/2021, Additional history exists Depression screening for age 12+ 04/05/2024 04/05/2023, 04/05/2023, 03/01/2022, Additional history exists Medicare Wellness for age 65+ 04/05/2024, 02/28/2022, 02/03/2021, Additional history exists BMI (ht and wt on same day) for age 18+ 08/19/2024 08/20/2023, 04/05/2023, 11/15/2022, Additional history exists Lipids for age 45-75 10/05/2027 10/04/2022, 02/28/2022, 02/03/2021, Additional history exists Tdap Completed 06/23/2011 Hepatitis C screening for ag e 18-79 Completed 08/01/2017 Pneumococcal series for age 65+ Completed 9, 08/01/2017 Zoster (shingles) series for age 50+ Completed 02/27/2019, 12/25/2018 Procedures Procedure Name Priority Date/Time Associated Diagnosis Comments LIPID PANEL Early AM 10/04/2022 4:29 AM CDT COLONOSCOPY SCREENING Routine 10/01/2018 8:42 AM CDT History of colon polyps ANTI HCV Routine 08/01/2017 5:15 PM CDT Need for hepatitis C screening test from Last 3 Months or Most Recently Relevant to Health Maintenance Results * (ABNORMAL) Lipid Panel (10/04/2022 4:29 AM CDT) CHOLESTEROL,TOTAL 92(L) 100 - 199 mg/dL 10/04/2022 5:33 AM CDT [facility] Comment: Cholesterol, Total Reference Ranges Desirable <200 mg/dL Borderline 200-239 mg/dL High >=240 mg/dL TRIGLYCERIDES 60 <150 mg/dL 10/04/2022 5:33 AM CDT [facility] HDL CHOLESTEROL 37(L) >40 mg/dL 5:33 AM CDT [facility] NON-HDL CHOLESTEROL 55 <145 mg/dl 10/04/2022 5:33 AM CDT [facility] CHOL/HDL RATIO 2.49 <4.50 10/04/2022 5:33 AM CDT [facility] LDL CHOLESTEROL 43 <=130 mg/dL 10/04/2022 5:33 AM CDT [facility] VLDL CHOLESTEROL 12 <=30 mg/dL 10/04/2022 5:33 AM CDT [facility] PROVIDER ORDERED STATUS RANDOM 10/04/2022 5:33 AM CDT [facility] Blood BLOOD SPECIMEN / Unknown Venipuncture / Unknown 10/04/2022 4:29 AM CDT 10/04/2022 4:54 AM CDT Neva Joiner MD CHE[facility] [address] [place] [address], * COLONOSCOPY SCREENING (10/01/2018 8:42 AM CDT) Jurgen Swenson MD GI PROCEDURE ORD * ANTI HCV [19381.2] (08/01/2017 5:15 PM CDT) HEPATITIS C ANTIBODY Non-React lin Non-React lin 08/02/2017 1:33 PM CDT [facility] Comment:Antibodies to HCV no t detected; does not exclude the possibility of exposure to HCV. Blood BLOOD SPECIMEN / Unknown Venipuncture / Unknown 08/01/2017 5:15 PM CDT 08/01/2017 5:16 PM CDT Jurgen Swenson MD SEND OUTS [facility] [address] [place] [address], from Last 3 Months or Most Recently Relevant to Health Maintenance Advance Directives * Full Code (Latest Code Status on File) Date Activated Date Inactivated Comments 10/03/2022 10:03 AM 10/05/2022 3:29 PM Question Answer Comments Code Status Discussion: Reviewed Preferences Care Teams Youth Nutritional Monitor Relationship Specialty Start Date End Date Jed García DO [address] [place] [address] PCP - General Family Practice 10/12/22
--- OUTSIDE RECORDS SUMMARY | 2023-09-03 06:25 | XMS_ITS | Continuity of Care Document ---
Author Organization [facility] Address [address] [address] [place] [address] Phone Care Team Providers Care Reuse Technician Name Role Phone Jurgen Romo MD Unavailable Unavailable Procedures Procedure Date Colonoscopy Flex; W/remov Les- 13 Colonoscopy Flex; Dx (nov Pro) 07 Advance Directives Directive Yes / No Effective Date File Name No Information Encounters Encounter Description Practice Location Reason(s) For Visit Diagnoses Date Provider Providers Copied on Encounter [facility], [address] [address], [place], [place], [id number], tel:[phone] [facility] No Information Demetrius Seaman. [address] [place] [address], [id number], [place]. tel:[phone] Referring Provider: Conner Reyes, [address] [place] [address], [address]. tel:[phone] [facility], [address] [address], [place], [id number], tel:[phone] [employer] No Information Demetrius Seaman. [address] [place] [address], [id number], [place]. tel:[phone] Referring Provider: Conner Reyes, [address] [place] [address], [address]. tel:[phone] [facility], [address] [address], [place], [id number], tel:[phone] [facility] [employer] No Information Demetrius Seaman. [address] [place] [address], [place], [id number], . tel:[phone] Referring Provider: Conner Reyes, [facility] [address], [place], [address]. tel:[phone] Family History Family Member Type Diagnosis Age At Onset No Information Payers Payer name Insurance type Covered libertarian ID Authoriza tigabriel(s) [facility] [id number] Social History Type Description Quantity Date Captured Comments Sex Male Smoking Status No Information Chief Complaint And Reason For Visit No Information Reason For Referral Reason For Referral No Information History Of Present Illness Encounter Date Complaint History Of Prese nt Illness No Information Functional Status Date Functional Assessmen t No Information Instructions Date Instruction Additional Infor mation No Information Assessments Type Assessment Date No Information Patient Care Teams Name Effective Dates (start - stop) Status Members No Information
--- NOTE | 2023-09-03 07:48 | W.ANESCHARGE ---
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
--- NOTE | 2023-09-03 09:46 | W.ANESCHARGE ---
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
== END 2023-09-03 06:23 | disposition home or self-care (01) ==
PROVIDERS: Visit Provider Internal Medicine Gastroenterology
DX: Z12.11 Encounter for screening for malignant neoplasm of colon (principal); K63.5 Polyp of colon; K57.30 Diverticulosis of large intestine without perforation or abscess without bleeding; Z86.010 Personal history of colon polyps; Z98.0 Intestinal bypass and anastomosis status
CPT/HCPCS: 00811; 45385; 88305; 99100; J2704

== ENCOUNTER 2024-11-07 11:19 | Emergency (ER) | payer MEDICARE, BC, SELFPAY ==
--- OUTSIDE RECORDS SUMMARY | 2024-11-07 11:22 | XMS_ITS | Clinical Summary ---
Author Organization [employer] [facility] [employer] [facility] Address [address] [place] [id number] Care Team Providers Care Eligibility Manager Name Role Phone Mono García DO Primary Care Provider [phone] Allergies No known active allergies Medications multivitamin (MVI) tablet Take 1 Tablet by mouth once daily. 0 0 Active Mynyu-1-IBX-EPA-Fis h Oil 1,000 mg (120 mg-180 mg) cap Take 1 Capsule by mouth once daily. 0 0 Active Saw Ashburn 160 mg capsule Take 1 Capsule by mouth once daily. 0 0 Active cholecalciferol (Vitamin D) 1,000 unit capsule Take 1 Capsule (1,000 units) by mouth once daily. 0 2 Active glucosam-chondroit- C-manganese 500-400-2-0.33 mg cap Take 1 Capsule by mouth once daily. Active Coenzyme Q10 10 mg cap Take 10 mg by mouth once daily. Active Eliquis 5 mg tabletIndications:P aroxysmal atrial fibrillation (HC) TAKE 1 TABLET(5 MG) BY MOUTH TWICE DAILY 180 Tablet 3 5 Active rosuvastatin 10 mg tabletIndications:H yperlipidemia, unspecified hyperlipidemia type Take 1 Tablet (10 mg) by mouth at bedtime. 90 Tablet 3 5 Active lisinopriL 2.5 mg tabletIndications:H TN (hypertension) Take 1 Tablet (2.5 mg) by mouth once daily. 90 Tablet 2 5 Active cephalexin 500 mg capsuleIndications: Cellulitis of lower extremity, unspecified laterality Take 1 Capsule (500 mg) by mouth four times daily for 7 days. 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 Family history of colon cancer 10/12/2022 Ischemic stroke 10/04/2022 Acute CVA (cerebrovascular accident) 10/03/2022 HTN (hypertension) 10/03/2022 Morbid obesity with BMI of 40.0-44.9, adult 11/03 Adenomatous colon polyp 07/07/2015 Overview (09/11/2023): Colonoscopy 07/2015 multiple polyps repeat in 3 years Colonoscopy 09/2018 2 polyps, repeat in 5 years Colonoscopy 09/2023 TA, SSA, repeat in 5 years Encounters Date Type Department Care Team Description 11/07/[address] [facility] [address] [place] [address] Mono García DO Cellulitis 11/04/2024 11:35 AM CDT Office Visit [facility] [address] [place] [address] Wanda Sousa PA Leg Pain/problem (b/l swelling and redness with blister like wounds that pop and are purulent. Swelling for 2 weeks; blisters 1 week ago. ) 11/04/2024 Travel 08/26/2024 10:00 AM CDT Ancillary Procedure [facility] [address] [place] [address] 08/26/2024 Travel 08/18/[address] [facility] [address] [place] [address] Mono García DO Refill Request (Lisinopril) from Last 3 Months Immunizations Immunization Administration Dates Next Due Influenza, Inactivated AIIV4 (Age 65+ Years) Preserv Free 12/22/2022,02/15/2022,02/03/2021,11/20 Pneumococcal Poly,23-Valent (Pneumovax) 08/21/2018 Pneumococcal conj 13-Valent (Prevnar 13) 08/01/2017 RSV, Bivalent Vaccine Recons tituted (Abrysvo 120MCG/0.5mL) 12/30/2022 Tdap 05/01/2023,06/23/2011 Zoster (Shingrix-RZV, recombinant) 02/27/2019, Family History Medical [...] Answer Date Recorded PHQ-2 TOTAL SCORE 0 07/23/2024 Social Connections Answer Date Recorded Do you often feel lonely or isolated from those around you? 0 07/24/2024 Financial Resource Strain Answer Date R ecorded Difficulty of Paying Living Expenses 3 10/23/2023 Difficulty of Paying Living Expenses Not on file 10/23/2023 Food Insecurity Answer Date Recorded Do you worry your food will run out before you are able to buy more? 1 07/24/2024 Transportation Needs Answer Date Record ed Does lack of transportation keep you from medica l appointments? 1 07/24/2024 Does lack of transportation keep you from work, meetings or getting things that you need? 1 07/24/2024 Housing Stability Answer Date Recorded What is your housing situation today? 1 07/24/2024 Utilities Answer Date Recorded Do you have trouble paying f or utilities (for example, heat, electricity, water, phone)? 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 Not on file Not on file Not on file Obstetrics History Last Filed Vital Signs Vital Sign Reading Time Taken Comments Blood Pressure 127/76 11/04/2024 11:42 AM CDT Pulse 60 11/04/2024 11:42 AM CDT Temperature 36.4 C (97.6 F) 11/28/2022 1:45 PM CDT Respiratory Rate 18 11/28/2022 1:45 PM CDT Oxygen Saturation 96% 11/04/2024 11: 42 AM CDT Inhaled Oxygen Concentration - - Weight 136.1 kg (300 lb 1.6 oz) 025 11:42 AM CDT Height 177.8 cm (5' 10) 07/24/2024 2:05 PM CDT Body Mass Index 43.06 07/24/2024 2:05 PM CDT Plan of Treatment Upcoming Encounters Date Type Department Care Team (Late st Contact Info) Description 12/08/2024 Cardiac Device Check [facility] [phone] Health Maintenance Due Date Last Done Comments COVID-19 vaccine series ( season) 2024 02/15/2024, 12/18/2022, 12/29/2021, Additional history exists Influenza Vaccine (#1) 2024 , 02/15/2022, 02/03/2021, Additional history exists Depression screening for age 12+ 07/23/2025 07/23/2024, 04/05/2023, 04/05/2023, Additional history exists BMI (ht and wt on same day) for age 18+ 07/24/2025 07/24/2024, 09/05/2023, 08/20/2023, Additional history exists Medicare Wellness for age 65+ 07/25/2025 07/24/2024, 04/05/2023, 02/28/2022, Additional history exists Colonoscopy through age 75 09/02/202809/02, 09/03/2023, 10/01/2018, Additional history exists Lipids for age 45-75 07/24/2029 07/24/2024, 10/23/2023, 10/04/2022, Additional history exists Tetanus booster 05/01/2033 05/01/2023, 06/23/2011 Hepatitis C screening for age 18-79 Completed 08/01/2017 Pneumococcal series for age 50+ Completed 08/21/2018, 08/01/2017 Zoster (shingles) series for age 50+ Completed 02/27/2019, 12/25/2018 RSV vaccine for adults or Completed 12/30/2022 Hepatitis B series for 19+ Aged Out N o longer eligible based on patient's age to complete this topic Procedures Procedure Name Priority Date/Time Associated Diagnosis Comments AEROBIC BACTERIAL CULTURE, STAIN Routine 11/04/2024 11:57 AM CDT Cellulitis of lower extremity, unspecified laterality ECHO TTE COMPLETE WO CONTRAST Routine 08/26/2024 10:48 AM CDT Aortic root dilatation LIPID PANEL W REFLEX MEASURED LDL Routine 07/24/2024 2:28 PM CDT Hyperlipidemia, unspecified hyperlipidemia type COLONOSCOPY SCREENING Routine 09/03/2023 12:00 AM CDT Adenomatous polyp of colon, unspecified part of colon ANTI HCV Routine 08/01/2017 5:15 PM CDT Need for hepatitis C screening test from Last 3 Months or Most Recently Relevant to Health Maintenance Results * ECHO TTE COMPLETE WO CONTRAST (08/26/2024 10:48 AM CDT) AORTIC VALVE MEAN PG 4 mmHg EJECTION FRACTION 66 % PEAK TR VELOCITY 3.1 m/s LVEDD 5.7 cm Anatomical Region Laterality Modality Ultrasound 08/26/2024 10:1 7 AM CDT Narrative 08/26/2024 11:12 AM CDT ECHOCARDIOGRAM VLADIMIR BARDALES : 1950 74 years Study Date: 08/26/2024 10:17:14 AM Gender: M BP: 159/67 mmHg Height: 178.00 cm BSA: 2.47 m Weight: 135.00 kg Tech: ADÁN Referring MD: MONO GARCÍA Site: [facility] Reading Location: Mobile-OP Patient Location: Outpatient. Procedure: 2D, Color Doppler and Spectral Doppler. Indication for study: Ao root dilatation Cardiac Rhythm: Sinus bradycardia.Study quality: Fair. Imaging limitations: This study was subject to imaging limitations due to body habitus and a prominent lung artifact. Final Impressions: 1. Mildly increased left ventricular size, borderline wall thickness, normal global systolic function, calculated EF of 66 %. 2. Right ventricular cavity size is normal, global systolic RV function is normal. 3. Mildly enlarged left atrium. 4. No significant valve disease detected. 5. Upper normal aortic sinus (4.0 cm) and ascending aorta (4.1 cm) size when accounting for patient height. Comparison Compared to prior exam of 10/02/2022: Difference in ascending aorta size is likely due to different location of measurement - today's study appears to visualize more of the ascending aorta. Chamber Sizes and Function Mildly increased left ventricular size, borderline wall thickness, normal global systolic function, calculated EF of 66 %. No resting regional wall motion abnormality visualized. Left atrial size is mildly enlarged. Right ventricular cavity size is normal, global systolic RV function is normal. The right atrium is normal. Right atrial volume index is 28 ml/m . Right atrial area is 22 cm . The pulmonary artery is not well visualized. The sinus of Valsalva is normal sized. The ascending aorta is normal sized. Valves, RV Pressures and Diastolic Function The aortic valve is normal in structure and trileaflet, no stenosis and no regurgitation. The mitral valve is normal in structure, trace mitral regurgitation. Indeterminate pattern of LV diastolic filling. The tricuspid valve is normal in structure, mild tricuspid regurgitation. The tricuspid regurgitant velocity is 3.1 m/s, the estimated right ventricular systolic pressure is 37 mmHg plus right atrial pressure. The pulmonic valve is not well visualized. Trace pulmonary regurgitation. Masses, Effusion, Shunts There is no pericardial effusion. The inferior vena cava is dilated, respiratory size variation greater than 50%. No left to right shunting was detected by limited color flow Doppler interrogation of the interatrial septum. MEASUREMENTS AND CALCULATIONS 2-D Measurements and LV Function: LVID (d) 5.7 cm Planimetered EF 66 % LVID (s) 3.7 cm LV FS% (2D) 35 % IVS (d) 1.3 cm LVOT diameter 2.6 cm LVPW (d) 1.1 cm HR 51 bpm Ao Sinus 4.0 cm LA Vol index 37 ml/m2 Ao Sinus ULN 4.2 cm * RA Vol index 28 ml/m2 Asc Ao 4.1 cm RA area 22 cm Asc Ao ULN 4.3 cm * RV Basal Diam 4.4 cm LA 4.6 cm RV Mid Diam 2.8 cm * Input BSA outside of range, reported values correspond to BSA = 2.1 Diastology: Mitral Tissue Doppler E Peak 0.7 m/s e', Septum 0.09 m/s A Peak 0.6 m/s e', Lateral 0.12 m/s E/A 1.2 E/e' Average 6.74 DT 243 msec Aortic Valve: Vmax 1.4 m/s LUCY (V) 4.32 cm VTI 0.33 m LUCY (I) 4.61 cm LVOT V max 1.1 m/s Max PG 8 mmHg LVOT VTI 0.28 m Mean PG 4 mmHg SV 153 ml Dim Index 0.84 SV index 62 ml/m CO 7.8 l/min CI 3.1 l/min/m Mitral Valve: MVA 3.1 cm MV P 1/2 70 msec Tricuspid Valve and estimated PA pressures: TR Vmax 3.1 m/s TAPSE 3.7 cm TR maxG 37 mmHg . This study was interpreted by an [facility] accredited facility. Final Procedure Note Mirza Bedoya MD - 08/26/2024 ECHOCARDIOGRAM VLADIMIR BARDALES : 1950 74 years Study Date: 08/26/2024 10:17:14 AM Gender: M BP: 159/67 mmHg Height: 178.00 cm BSA: 2.47 m Weight: 135.00 kg Tech: ADÁN Referring MD: MONO GARCÍA Site: [facility] Reading Location: Mobile-OP Patient Location: Outpatient. Procedure: 2D, Color Doppler and Spectral Doppler. Indication for study: Ao root dilatation Cardiac Rhythm: Sinus bradycardia.Study quality: Fair. Imaging limitations: This study was subject to imaging limitations due tobody habitus and a prominent lung artifact. Final Impressions: 1. Mildly increased left ventricular size, borderline wall thickness,normal global systolic function, calculated EF of 66 %. 2. Right ventricular cavity size is normal, global systolic RV functionis normal. 3. Mildly enlarged left atrium. 4. No significant valve disease detected. 5. Upper normal aortic sinus (4.0 cm) and ascending aorta (4.1 cm) sizewhen accounting for patient height. Comparison Compared to prior exam of 10/02/2022: Difference in ascending aorta size is likely due to different location ofmeasurement - today's study appears to visualize more of the ascendingaorta. Chamber Sizes and Function Mildly increased left ventricular size, borderline wall thickness, normalglobal systolic function, calculated EF of 66 %. No resting regional wallmotion abnormality visualized. Left atrial size is mildly enlarged. Rightventricular cavity size is normal, global systolic RV function is normal.The right atrium is normal. Right atrial volume index is 28 ml/m . Rightatrial area is 22 cm . The pulmonary artery is not well visualized. Thesinus of Valsalva is normal sized. The ascending aorta is normal sized. Valves, RV Pressures and Diastolic Function The aortic valve is normal in structure and trileaflet, no stenosis and noregurgitation. The mitral valve is normal in structure, trace mitralregurgitation. Indeterminate pattern of LV diastolic filling. Thetricuspid valve is normal in structure, mild tricuspid regurgitation. Thetricuspid regurgitant velocity is 3.1 m/s, the estimated right ventricularsystolic pressure is 37 mmHg plus right atrial pressure. The pulmonicvalve is not well visualized. Trace pulmonary regurgitation. Masses, Effusion, Shunts There is no pericardial effusion. The inferior vena cava is dilated,respiratory size variation greater than 50%. No left to right shunting wasdetected by limited color flow Doppler interrogation of the interatrialseptum. MEASUREMENTS AND CALCULATIONS 2-D Measurements and LV Function: LVID (d) 5.7 cm Planimetered EF 66% LVID (s) 3.7 cm LV FS% (2D) 35% IVS (d) 1.3 cm LVOT diameter2.6 cm LVPW (d) 1.1 cm HR 51bpm Ao Sinus 4.0 cm LA Vol index 37ml/m2 Ao Sinus ULN 4.2 cm * RA Vol index 28ml/m2 Asc Ao 4.1 cm RA area 22cm Asc Ao ULN 4.3 cm * RV Basal Diam4.4 cm LA 4.6 cm RV Mid Diam2.8 cm * Input BSA outside of range, reported values correspond to BSA = 2.1 Diastology: Mitral Tissue Doppler E Peak 0.7 m/s e', Septum 0.09 m/s A Peak 0.6 m/s e', Lateral 0.12 m/s E/A 1.2 E/e' Average 6.74 DT 243 msec Aortic Valve: Vmax 1.4 m/s LUCY (V) 4.32 cm VTI 0.33 m LUCY (I) 4.61 cm LVOT V max 1.1 m/s Max PG 8 mmHg LVOT VTI 0.28 m Mean PG 4 mmHg SV 153 ml Dim Index 0.84 SV index 62 ml/m CO 7.8 l/min CI 3.1 l/min/m Mitral Valve: MVA 3.1 cm MV P 1/2 70 msec Tricuspid Valve and estimated PA pressures: TR Vmax 3.1 m/s TAPSE 3.7 cm TR maxG 37 mmHg . This study was interpreted by an [facility] accredited facility. Final us Adei Jeovanymacrina DO ECHO ORD Final Result * (ABNORMAL) LIPID PANEL W REFLEX MEASURED LDL (07/24/2024 2:28 PM CDT) [facility] CHOLESTEROL, TOTAL 106 <200 mg/dL [facility] HDL CHOLESTEROL 38(L) > OR = 40 mg/dL [facility] TRIGLYCERIDES 73 <150 mg/dL [facility] LDL-CHOLESTEROL 53 mg/dL (calc) [facility] Comment: Reference range: <100 Desirable range <100 mg/dL for primary prevention; <70 mg/dL for patients with CHD or diabetic patients with > or = 2 CHD risk factors. LDL-C is now calculated using the Conner-Flaco calculation, which is a validated novel method providing better accuracy than the Friedewald equation in the estimation of LDL-C. Conner THORPE et al. JUNE. 2013;310(19): 5272-2128 (http://education.[employer]/faq/YZG385) CHOL/HDLC RATIO 2.8 <5.0 (calc) [facility] NON HDL CHOLESTEROL 68 <130 mg/dL (calc) [facility] Comment: For patients with diabetes plus 1 major ASCVD risk factor, treating to a non-HDL-C goal of <100 mg/dL (LDL-C of <70 mg/dL) is considered a therapeutic option. Blood BLOOD SPECIMEN / Unknown 07/24/2024 2:28 PM CDT 07/24/2024 2:30 PM CDT Narrative [facility] - 07/25/2024 3:36 AM CDT FASTING:YES FASTING: YES Adei DriftToItqra DO CHEMISTRY Final Result Performing Organization Address [facility] Co de Phone Number [id number] [facility] [address] [place] [address], [facility] [address] [place] [address] * COLONOSCOPY SCREENING (09/03/2023 12:00 AM CDT) Konbinijess DO GI PROCEDURE ORD Final Result * ANTI HCV [11012.2] (08/01/2017 5:15 PM CDT) HEPATITIS C ANTIBODY Non-React lin Non-React lin 08/02/2017 1:33 PM CDT [facility] Comment:Antibodies to HCV no t detected; does not exclude the possibility of exposure to HCV. Blood BLOOD SPECIMEN / Unknown Venipuncture / Unknown 08/01/2017 5:15 PM CDT 08/01/2017 5:16 PM CDT Vladimir Swenson MD SEND OUTS Final Resu lt [facility] [address] [place] [address], [place] from Last 3 Months or Most Recently Relevant to Health Maintenance Insurance MEDICARE PART B HB ONLY MEDICARE PB ONLY MEDICARE PART A HB ONLY MEDICARE PART B HB ONLY [facility] FED EMP Advance Directives * Full Code (Latest Code Status on File) Date Activated Date Inactivated Comments 10/03/2022 10:03 AM 10/05/2022 3:29 PM Question Answer Comments Code Status Discussion: Reviewed Preferences Care Teams Eligibility Manager Relationship Specialty Start Date End Date Mono García DO [address] [facility] [address] PCP - General Family Practice 10/12/22
[2024-11-07 11:54] VITALS: BP 133/81; PULSE 96; RESP 18; TEMP 36.6; O2SAT 99; BMI 41.6
--- NOTE | 2024-11-07 12:03 | ED_ITS ---
HPI - General Adult General Chief complaint: Skin/Abscess/Foreign Body Stated complaint: Leg Swells on both legs for past 2 weeks Time Seen by Provider: 11/07/24 11:30 History of Present Illness HPI narrative: Patient reports about two weeks of open sores in bilateral lower extremities. Figueroa s been taking prescribed antibiotics but reports worsening of leg infection. Did initially have cultures taken at [facility] , reports that on calling today these were pending. Patient denies fever or increase in pain. 74-year-old man presenting to the emergency department with concern of increased swelling in his right lower leg in particular. Does have a longstanding history of with sounds like lymphedema. Denies any heart problems like CHF, but does take twice a day 5 mg of apixaban for history of CVA. No chest pain or shortness of breath. Seen in clinic and initiated on cephalexin 3 days ago. Was told to follow-up if was not doing much better in a couple of days. Believes that the swelling has increased particularly, again right more so than left, in the last 2 days. No fever. Is not having much in the way of pain. Has been recommended for compression but does not use it. Does try to get the legs up at rest as demonstrated though is not quite at or above the level of the heart. Source have been open for a couple of weeks. Cultures apparently are pending. Related Data Home Medications ?Medication ?Instructions ?Recorded ?Confirmed rosuvastatin 10 mg tablet (Crestor) 10 mg PO DAILY 11/07/24 aspirin 81 mg chewable tablet 1 tab PO DAILY 10/16/22 10/16/22 clopidogrel 75 mg tablet 75 mg PO DAILY 10/16/2210/03 lisinopril 5 mg tablet 5 mg PO DAILY 10/16/2210/16 apixaban 5 mg tablet (Eliquis) 5 mg PO BID 11/07/24 cephalexin 500 mg capsule 500 mg PO QID 11/07/2411/07 lisinopril 2.5 mg tablet 2.5 mg PO DAILY 11/07/2407/27 Allergies Allergy/AdvReac Type Severity Reaction Status Date / Time No Known Drug Allergies Allergy Verified 11/07/24 11:53 Review of Systems Status of ROS: Reports: 6 or more systems reviewed and unremarkable except as noted in History and below [facility] Medical History Elevated BP without diagnosis of hypertension ?R03.0 - Elevated blood-pressure reading, without diagnosis of hypertension (ICD-10) Family history of prostate cancer in father ?Z80.42 - Family history of malignant neoplasm of prostate (ICD-10) Family history of colon cancer in mother ?Z80.0 - Family history of malignant neoplasm of digestive organs (ICD-10) Adenomatous polyp of colon ?D12.6 - Benign neoplasm of colon, unspecified (ICD-10) Obesity ?E66.9 - Obesity, unspecified (ICD-10) Hyperlipidemia ?E78.5 - Hyperlipidemia, unspecified (ICD-10) Surgical History Status post right rotator cuff repair ?Z98.890 - Other specified postprocedural states (ICD-10) S/P colectomy ?Z90.49 - Acquired absence of other specified parts of digestive tract (ICD- 10) Hx of colonoscopy with polypectomy ?Z98.890 - Other specified postprocedural states (ICD-10) ?Z86.010 - Personal history of colonic polyps (ICD-10) Family History Mother Colon cancer, Onset Age: 62 Father Prostate cancer Social History Narrative: As of 10/02/2022, 45 years. 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 Lives with , Maryann Tucker. Designates as POA for health should that be needed - Maryann's telephone number is [phone]. Requests full resuscitation in event of cardiopulmonary demise. Primary care physician is Dr. Jed García, [facility], [place], [place]. What is your current living situation?: I presently have a place to live Problems where you live: no known problems Problems where you live details: None In the past 12 months, utilities in danger of being shut off: no In past 12 months, lack of transportation kept you from medical appts, meetings, work, or getting things needed for daily living: no In the past 12 mos, have been you worried that your food would run out before you had money to buy more?: never true In the past 12 mos, the food you bought just didn't last and you didn't have money to buy more?: never true Highest level of school completed/degree received: Associate degree: occupational, technical, vocational program Smoking Status: Never smoker How often do you have a drink containing alcohol: monthly or less Alcohol type: beer How often do you have six or more drinks on one occasion: Never AUDIT-C Alcohol total score: 1 Non-prescribed substance use: denies use Caffeine: No How often does anyone, including family, friends and others, physically hurt you : never How often does anyone, including family, friends and others, insult or talk down to you: never How often does anyone, including family, friends and others, threaten you with harm: never How often does anyone, including family, friends and others, scream or curse at you: never service: No Exam Narrative: Exam Narrative: Pleasant. NAD. Breathing easily. Heart is a little bit elevated and rate. Appears to be in a regular rhythm today. Bilateral lower legs with moderate pitting edema. More so again in the right. There is some erythema without significant calor over the anterior gonzalez and little bit over the medial inferior malleolar area. Couple areas of blistering. One more centrally with little more erythema around it looks more like a nearly 1.5 cm blood blister. 2 cm erosion which had been bandaged is below and medial to that. Another small blister subcentimeter that has not ruptured. Left lower leg with healed anterior lower leg erosion now scabbed. Faint erythema here as well. Negative Homans. Not particularly tender to palpation. Const: Vital Signs, click to edit/add: Vital Signs - 24 hr 11/07/24 11:54 Temperature 98 F Pulse Rate [Pulse Oximeter] 96 Respiratory Rate 18 Blood Pressure [Ri ght Upper Arm] 133/81 Pulse Oximetry 99 Oxygen Delivery Me thod Room Air Documenting provider has reviewed patient's vital signs: yes Course Vital Signs Vital signs: Initial Vital Signs Temperature 98 F 11/07/24 11:54 Temperature Source Temporal Artery Scan 11/07/24 11:54 Pulse Rate 96 11/07/24 11:54 Respiratory Rate 18 11/07/24 11:54 Blood Pressure 133/81 11/07/24 11:54 Blood Pressure Mean 98 11/07/24 11:54 Pulse Oximetry 99 11/07/24 11:54 Oxygen Delivery Method Room Air 11/07/24 11:54 Vital Signs Temperature 98 F 11/07/24 11:54 Pulse Rate 96 11/07/24 11:54 Respiratory Rate 18 11/07/24 11:54 Blood Pressure 133/81 11/07/24 11:54 Pulse Oximetry 99 11/07/24 11:54 Oxygen Delivery Method Room Air 11/07/24 11:54 Temperature 98 F 11/07/24 11:54 Pulse Rate 96 11/07/24 11:54 Respiratory Rate 18 11/07/24 11:54 Blood Pressure 125/65 11/07/24 14:08 Pulse Oximetry 99 11/07/24 11:54 Oxygen Delivery Method Room Air 11/07/24 11:54 Medical Decision Making MDM Narrative Medical decision making narrative: I think compression and elevation is going to be most important here. Does not appear to have respiratory symptoms. This could be simply venous insufficiency. Check some basic labs looking for further indication infection. I do not think this has much in the way of cellulitis. Though he is taking apixaban this abrupt change without more infectious appearance might warrant venous ultrasound looking for DVT. We discussed this possibility. I would like to proceed with this. I think that is reasonable. Labs are generally reassuring the CRP is little elevated at 4.2. I did discuss findings of right leg ultrasound with vocational rehab consultant. Popliteal cyst is noted but without evidence of DVT. Does not sound as though this popliteal cyst ruptured as potential explanation to this swelling. I discussed this future possibility with Mr. Tucker. We were able to obtain initial culture results from swabs that had been done on his legs outside clinic. I am not sure that we have seen failure of cephalexin. Should provide reasonable coverage and the brightness that is present suggests a strep organism and does not sound like MRSA has ever been an issue; I would continue cephalexin at this point pending result of the sensitivities. Radiology over-read below Comparison: None. Findings: Common femoral vein: No evidence of thrombus. Femoral vein: No evidence of thrombus. Popliteal vein: No evidence of thrombus. Calf veins: Patent. 5.1 x 1.0 x 3.2 centimeter popliteal cyst. Impression: 1. No ultrasound evidence of deep venous thrombosis. 2. 5.1 x 1.0 x 3.2 centimeter right popliteal cyst. Dictated by Gutierrez Wallis MD @ 11/07/2024 1:15:45 PM I did discuss dressings of these wounds with our wound care clinic staff. I did place Adaptic type Vaseline gauze, Telfa, cut ABD pad and then Vince wraps. See patient discharge plan for further discussion Any time you are at rest do continue to try to get your legs elevated; maybe up a little higher than you have been doing. Also generally to keep some degree of compression on your legs to encourage the fluid to be pushed up/out. This might be the Vince wraps were this might be compression stockings. Continue to dress open wounds as we did here today. I would follow up in about a week for recheck. The sensitivities for the bacteria that were cultured from your wound are pending and I would anticipate you getting a call from your clinic if they want you to change course with antibiotics. For now continue with her cephalexin. Of course if swelling continues to worsen, you have increasing pain to palpation in your legs, you have a fever, would be seen again. Medical Records Medical records reviewed: Yes I reviewed the patient's medical records Lab Data Lab results reviewed: Yes I reviewed the patient's lab results Labs: Lab Results 11/07/24 Range/Units 12:36 WBC 7.00 (4.50-11.00) K/uL RBC 4.39 (4.30-5.90) m/uL Hgb 13.1 L (13.5-17.5) gm/dL Hct 40.3 (37.0-53.0) % MCV 92 (80-100) fL MCH 30 (26-34) pg MCHC 33 (32-36) gm/dL RDW Coeff of Ant 12.8 (11.5-15.5) % Plt Count 268 (140-440) K/uL Neut % (Auto) 67.3 (42.0-72.0) % Lymph % (Auto) 16.6 L (20-44) % [place] % (Auto) 12.6 H (0.0-11.0) % Eos % (Auto) 3.0 (0.0-7.0) % Baso % (Auto) 0.4 (0.0-3.0) % Neut # (Auto) 4.71 (1.7-7.0) K/uL Lymph # (Auto) 1.20 (0.90-2.90) K/uL [place] # (Auto) 0.90 (0.00-0.90) K/UL Eos # (Auto) 0.21 (0.00-0.50) K/uL Baso # (Auto) 0.03 (0.00-0.30) K/uL Abs Immat Gran (auto) 0.01 (0.00-0.30) K/uL Imm/Tot Granulo (auto) 0.1 % Sodium 139 (135-149) mmol/L Potassium 4.8 (3.6-5.1) mmol/L Chloride 102 (96-114) mmol/L Carbon Dioxide 31 (20-32) mmol/L Anion Gap 6 L (7-15) mEq/L BUN 18 (7-30) mg/dL Creatinine 0.8 (0.5-1.5) mg/dL Estimated Creat Clear 70.07 Estimated GFR 93 ml/min Glucose 106 (60-115) mg/dL Calcium 9.0 (8.4-10.6) mg/dL C-Reactive Protein 4.2 H (0.5-1.0) mg/dL NT-Pro-B Natriuret Pep 289 (See Note) pg/mL Discharge Plan Discharge Clinical Impression: Peripheral edema, Stasis edema with ulcer Patient Disposition: Home w/ Parent or Adult Condition: Improved Additional Instructions: Any time you are at rest do continue to try to get your legs elevated; maybe up a little higher than you have been doing. Also generally to keep some degree of compression on your legs to encourage the fluid to be pushed up/out. This might be the Vince wraps were this might be compression stockings. Continue to dress open wounds as we did here today. I would follow up in about a week for recheck. The sensitivities for the bacteria that were cultured from your wound are pending and I would anticipate you getting a call from your clinic if they want you to change course with antibiotics. For now continue with her cephalexin. Of course if swelling continues to worsen, you have increasing pain to palpation in your legs, you have a fever, would be seen again. Prescriptions: No Action clopidogrel 75 mg tablet 75 mg PO DAILY aspirin 81 mg tablet,chewable 1 tab PO DAILY lisinopril 5 mg tablet 5 mg PO DAILY cephalexin 500 mg capsule 500 mg PO QID lisinopril 2.5 mg tablet 2.5 mg PO DAILY Eliquis 5 mg tablet 5 mg PO BID rosuvastatin [Crestor] 10 mg tablet 10 mg PO DAILY Follow Up/Referrals: Provider,Not a Local [Non-Staff, Family Practice] Stand Alone Forms: [facility] Info Instructions
--- NOTE | 2024-11-07 12:20 | CRLHL7_ITS ---
For Patients: As a result of the Century Cures Act, medical imaging exams and procedure reports are released immediately into your electronic medical record. You may view this report before your referring provider. If you have questions, please contact your health care provider. Indication: increased lower leg swelling Technique: Real-time longitudinal and transverse sonographic sharma-scale imaging with and without compression, as well as color, duplex, and spectral Doppler imaging before and after augmentation, was obtained of the deep system of the right lower extremity, including the common femoral, femoral, popliteal, posterior tibial, and peroneal veins. Comparison: None. Findings: Common femoral vein: No evidence of thrombus. Femoral vein: No evidence of thrombus. Popliteal vein: No evidence of thrombus. Calf veins: Patent. 5.1 x 1.0 x 3.2 centimeter popliteal cyst. Impression: 1. No ultrasound evidence of deep venous thrombosis. 2. 5.1 x 1.0 x 3.2 centimeter right popliteal cyst. Dictated by Gutierrez Wallis MD @ 11/07/2024 1:15:45 PM (Electronically Signed)
[2024-11-07 12:44] LABS: Hematocrit 40.3 % (37.0-53.0); Hemoglobin* 13.1 gm/dL (13.5-17.5); Immature Granulocytes Abs Auto 0.01 K/uL (0.00-0.30); Immature Granulocytes Pct Auto 0.1 %; Mean Corpuscular HGB Conc 33 gm/dL (32-36); Mean Corpuscular Hemoglobin 30 pg (26-34); Mean Corpuscular Volume 92 fL (80-100); RDW Coefficient of Variation % 12.8 % (11.5-15.5); Red Blood Count 4.39 m/uL (4.30-5.90); White Blood Count* 7.00 K/uL (4.50-11.00)
[2024-11-07 12:48] LABS: Lymphocytes Absolute Auto 1.20 K/uL (0.90-2.90); Slide Review Reflex No
[2024-11-07 12:59] LABS: Chloride* 102 mmol/L (96-114); Potassium* 4.8 mmol/L (3.6-5.1); Sodium* 139 mmol/L (135-149)
[2024-11-07 13:02] LABS: Anion Gap 6 mEq/L (7-15); Blood Urea Nitrogen* 18 mg/dL (7-30); Calcium* 9.0 mg/dL (8.4-10.6); Carbon Dioxide* 31 mmol/L (20-32); Creatinine* 0.8 mg/dL (0.5-1.5); Est. Creatinine Clearance* 70.07; Estimated Glomerular Filt Rate 93 ml/min; Glucose* 106 mg/dL (60-115)
[2024-11-07 13:14] LABS: NT Pro B Type NatriureticPept* 289 pg/mL (See Note)
[2024-11-07 14:08] VITALS: BP 125/65
== END 2024-11-07 15:27 | disposition home or self-care (01) ==
PROVIDERS: Emergency Provider Family Medicine; PCP Student in an Organized Health Care Education/Training Program
DX: R60.0 Localized edema (principal); L97.919 Non-pressure chronic ulcer of unspecified part of right lower leg with unspecified severity
CPT/HCPCS: 36415; 80048; 83880; 85025; 86140; 93971; 99284